=== PATIENT | male | born 1945 | race Caucasian/White ===

== ENCOUNTER 2016-05-13 09:25 | Day surgery (SDC) | payer MEDICARE, BC ==
[~2016-05-13 09:25] MED LIST: PROPOFOL 500 MG/50 ML EMU IV ONE
[2016-05-13 11:51] VITALS: PULSE 65; RESP 20; TEMP 97.4
[2016-05-13 11:53] VITALS: BP 110/77; O2SAT 99
== END 2016-05-13 12:05 | disposition home or self-care (01) | DRG 951 ==
LOC: SURG 09:25
PROVIDERS: ATTEND Surgery
DX: Z12.11 Encounter for screening for malignant neoplasm of colon (principal)
CPT/HCPCS: J2001; J2704